=== PATIENT | male | born 1980 | race African-American/Black ===

== ENCOUNTER 2019-07-19 21:09 | Emergency (ER) | payer BC ==
[~2019-07-19] VITALS: Ht 182.8 cm; Wt 83.9 kg
== END 2019-07-19 22:09 | disposition home or self-care (01) ==
LOC: ED 21:09
DX: S63.104A Unspecified dislocation of right thumb, initial encounter (principal); X58.XXXA Exposure to other specified factors, initial encounter; Y93.67 Activity, basketball; Y92.89 Other specified places as the place of occurrence of the external cause; Y99.8 Other external cause status